=== PATIENT | female | born 1965 | race Hispanic/Latino ===

== ENCOUNTER 2020-10-11 18:36 | Emergency (ER) | payer OTHER ==
[~2020-10-11 18:36] MED LIST: ADV250 IH; ALBU8.5H8 IH
[2020-10-11] MEDS ORDERED: SOLU-MEDROL 125MG VIAL ONE (19:30)
[2020-10-11] MEDS ORDERED: IPRATROPIUM/ALBUTEROL SULFATE 3 ML SOLUTION IH ONE (19:37)
[2020-10-23] MEDS ORDERED: FAMO20TA8 PO (10:46)
[2020-10-23] MEDS ORDERED: LORA10TA7 PO (10:46)
== END 2020-10-11 20:47 | disposition home or self-care (01) ==
LOC: EDH 18:36
DX: J45.909 Unspecified asthma, uncomplicated (principal); Z88.6 Allergy status to analgesic agent
CPT/HCPCS: 93005; 94640; 96374; 99283; J2930

== ENCOUNTER 2020-10-26 06:53 | Day surgery (SDC) | payer OTHER ==
[2020-10-19 12:37] LABS: BASOPHILS % (AUTO) 0.5 % (0.0-5.0); EOSINOPHILS % (AUTO) 5.3 % (0.0-8.0); LYMPHOCYTES % (AUTO) 22.3 % (21.0-51.0); MEAN CORPUSCULAR HEMOGLOBIN 27.8 pg (27.0-33.0); MEAN CORPUSCULAR HGB CONC 33.2 g/dL (32.0-36.0); MEAN CORPUSCULAR VOLUME 83.7 fL (79-99); MONOCYTES % (AUTO) 7.3 % (3.0-13.0); NEUTROPHILS % (AUTO) 63.9 % (40.0-77.0); PLATELET COUNT (AUTO) 318 K/uL (130-400); RED CELL DISTRIBUTION WIDTH 14.2 % (11.0-15.5); WHITE BLOOD COUNT (AUTO) 7.4 K/uL (4.8-10.8)
[2020-10-19 12:45] LABS: CREATININE 0.7 mg/dL (0.5-1.5); POTASSIUM 3.8 mmol/L (3.5-5.1)
[2020-10-23 10:42] VITALS: BP 119/78
[~2020-10-26] VITALS: Ht 160 cm; Wt 60.1 kg
[2020-10-26] VITALS (9 sets, daily range): BP systolic 112–127; BP diastolic 74–92
[~2020-10-26 06:53] MED LIST changes: +FAMO20TA8 PO; +LORA10TA7 PO
[2020-10-26] MEDS ORDERED: LACTATED RINGERS 1000ML 1,000 ML IV ONE (07:51)
[2020-10-26] MEDS ORDERED: LIDOCAINE PF 2% 5ML ABBOJECT ONE (08:09)
[2020-10-26] MEDS ORDERED: PROPOFOL 10 MG/ML 20ML VIAL IV ONE (08:09)
[2020-10-26] MEDS ORDERED: FENTANYL CITRATE PF 50 MCG/1 ML 2ML VIAL ONE (08:09)
[2020-10-26] MEDS ORDERED: MIDAZOLAM HCL 1 MG/ML 2ML VIAL ONE (08:09)
[2020-10-26] MEDS ORDERED: VASOPRESSIN 20 UNITS/ML 1ML VIAL ONE (08:10)
[2020-10-26] MEDS ORDERED: STRONG IODINE SOLN 14ML BOTTLE ONE (08:11)
[2020-10-26] MEDS ORDERED: LIDOCAINE HCL 1% 20 ML VIAL ONE (08:45)
== END 2020-10-26 10:00 ==
LOC: DAH 06:53
PROVIDERS: ATTEND Specialist
DX: R87.618 Other abnormal cytological findings on specimens from cervix uteri (principal); N72 Inflammatory disease of cervix uteri; J45.909 Unspecified asthma, uncomplicated; K21.9 Gastro-esophageal reflux disease without esophagitis; Z20.828 Contact with and (suspected) exposure to other viral communicable diseases
CPT/HCPCS: 36415; 57520; 80048; 85025; A4215; A4221; A4222; A4223; A4351; A4600; A4663; A6260; C9803; J2001; J2250; J2704; J3010; J3490; J7120; U0003

== ENCOUNTER 2022-01-07 20:35 | Emergency (ER) | payer OTHER ==
[~2022-01-07] VITALS: Ht 160 cm; Wt 66.2 kg
[~2022-01-07 20:35] MED LIST changes: +FLUC150T PO
[2022-01-07 20:42] VITALS: BP 137/83
[2022-01-07] MEDS ORDERED: KETOROLAC 60 MG VIAL (30MG/ML) IM ONE (21:00)
[2022-01-07] MEDS ORDERED: NAPR-1180 PO (22:05)
== END 2022-01-07 22:19 | disposition home or self-care (01) ==
LOC: EDH 20:35
DX: S93.402A Sprain of unspecified ligament of left ankle, initial encounter (principal); S93.602A Unspecified sprain of left foot, initial encounter; S80.02XA Contusion of left knee, initial encounter; J45.909 Unspecified asthma, uncomplicated; Z79.1 Long term (current) use of non-steroidal anti-inflammatories (NSAID); Z79.51 Long term (current) use of inhaled steroids; Z88.5 Allergy status to narcotic agent; Z88.8 Allergy status to other drugs, medicaments and biological substances; W18.39XA Other fall on same level, initial encounter; Y93.89 Activity, other specified; Y92.89 Other specified places as the place of occurrence of the external cause; Y99.8 Other external cause status
CPT/HCPCS: 99284; 73610; 73630; 73562; 96372; J1885

== ENCOUNTER 2024-09-05 22:45 | Emergency (ER) | payer BC, OTHER ==
[~2024-09-05] VITALS: Ht 160 cm; Wt 61.2 kg
[~2024-09-05 22:45] MED LIST changes: +NAPR-1180 PO
[2024-09-05] MEDS: FLUORESCEIN SODIUM 1 STRIP STRIP OP ONE (23:24)
[2024-09-05] MEDS: TETRACAINE HCL 0.5% 4 ML OPHTH SOLN OP ONE (23:25)
[2024-09-05] MEDS: TobRAMYCin/DEXAmethASONE OPTH SUSP 2.5 ML BOT OD ONE (23:53)
[2024-09-06 00:15] VITALS: BP 140/90; PULSE 86; RESP 18; TEMP 98.3; O2SAT 96
[2024-09-06] MEDS ORDERED: TOBR5DRO46 OP (00:24)
--- NOTE | 2024-09-06 00:25 | ERN ---
General Chief Complaint: Eye Problems Stated Complaint: RIGHT EYELID PAIN Time Seen by MD: 23:03 History of Present Illness Allergies: Coded Allergies: tramadol (Verified Allergy, Unknown, 02/07/18) Home Meds Active Scripts Naproxen (Naprosyn) 500 Mg Tablet, 500 MG PO BIDPC, #60 TAB Prov:AMRIT BYRNE 01/07/22 Fluconazole (Diflucan) 150 Mg Tablet, 150 MG PO DAILY, #2 TAB Prov:YOGESH LOVE MD 08/28/21 Reported Medications Loratadine (Loratadine) 10 Mg Tablet, 10 MG PO HS, TAB 10/23/20 Famotidine (Famotidine) 20 Mg Tablet, 20 MG PO DAILY, TAB 10/23/20 Fluticasone/Salmeterol (ADVAIR 250-50 DISKUS) 14 Inh/Disk Inh, 1 INH IH BID, INHALER 02/07/18 Albuterol Sulfate (Proair Hfa) 8.5 Gm Hfa.aer.ad, 8.5 GM IH [id number] PRN for PRN for Asthma 02/07/18 Past Medical History Past Medical History: Asthma Past Surgical History: None Family History Family History: Negative Social History Social History: Negative ED Course Orders Procedure Category Date Status Time Tetracaine Hcl PHA 09/05/24 Complete (Pontocaine 0.5% 23:00 Fluorescein Sodium PHA 09/05/24 Complete (Wizst-C-Yuydw At) 23:00 Tobramycin PHA 09/05/24 Complete Sulf/Dexamethasone 00:00 Current Medications Medications (Trade) Dose Ordered Sig/Shabnam Route PRN Reason Start Time Stop Time Status Last Admin Dose Admin Fluorescein Sodium (Fvcsh-H-Jpkyh At) 1 strip ONCE ONCE OP 09/05/24 23:00 09/05/24 23:01 DC 09/05/24 23:24 Tetracaine HCl (Pontocaine 0.5% Ophth Soln) 1 OR 2 DROPS ONCE ONCE OP 09/05/24 23:00 09/05/24 23:01 DC 09/05/24 23:25 Tobramycin/ Dexamethasone (TobraDEX EYE DROPS) 1 DROP ONCE ONCE OD 09/05/24 00:00 09/05/24 23:38 DC 09/05/24 23:53 Vital Signs Date Time Temp Pulse Resp B/P (MAP) Pulse Ox O2 Delivery O2 Flow Rate FiO2 09/05/24 22:48 98.4 87 19 150/93 95 Room Air DX & DISP Disposition: Discharge Departure Impression: Primary Impression: Blepharitis of lower eyelid Condition: Stable Scripts Tobramycin/Dexamethasone (Tobradex St Eye Drops) 0.3 %-0.05 % Drops.susp 1 DROP OP QID, #5 ML 0 Refills Prov: PATRICE RAMON 09/06/24 Additional Instructions: Your physical exam is consistent to what appears to be the start of an infection. You were started on eyedrops antibiotics in the ER. I have given you a prescription for outpatient eyedrop antibiotics. Please follow up with your eye doctor as discussed. Return to the ER for any new or worsening symptoms Referrals: PATRICE TABOR MD (PCP) Time of Disposition: 00:24 I have reviewed the case, and I agree with, Diagnosis and Plan PATRICE RAMON Sep 06, 2024 00:25
== END 2024-09-06 00:41 | disposition home or self-care (01) ==
LOC: EDH 22:45
DX: H01.002 Unspecified blepharitis right lower eyelid (principal); J45.909 Unspecified asthma, uncomplicated; Z79.51 Long term (current) use of inhaled steroids; Z88.5 Allergy status to narcotic agent
CPT/HCPCS: 99283

== ENCOUNTER 2025-04-01 02:29 | Emergency (ER) | payer BC ==
[~2025-04-01] VITALS: Ht 160 cm; Wt 64.0 kg
[~2025-04-01 02:29] MED LIST changes: +TOBR5DRO67 OP
[2025-04-01 02:31] VITALS: BP 142/89; PULSE 79; RESP 20; TEMP 96.6
[2025-04-01] MEDS ORDERED: CIPOTIC OTIC (02:37)
--- NOTE | 2025-04-01 02:40 | ERN ---
General Chief Complaint: Earache Stated Complaint: C/O RT EAR PAIN Time Seen by MD: 02:31 Time Seen by Midlevel: 02:31 Source: patient History of Present Illness Initial Comments 51-year-old female presenting to the ER with right ear fullness that started tonight. Denies any other symptoms Allergies: Coded Allergies: tramadol (Verified Allergy, Unknown, 02/07/18) Home Meds Active Scripts Tobramycin/Dexamethasone (Tobradex St Eye Drops) 0.3 %-0.05 % Drops.susp, 1 DROP OP QID, #5 ML 0 Refills Prov:PATRICE RAMON 09/06/24 Naproxen (Naprosyn) 500 Mg Tablet, 500 MG PO BIDPC, #60 TAB Prov:AMRIT BYRNE 01/07/22 Fluconazole (Diflucan) 150 Mg Tablet, 150 MG PO DAILY, #2 TAB Prov:YOGESH LOVE MD 08/28/21 Reported Medications Loratadine (Loratadine) 10 Mg Tablet, 10 MG PO HS, TAB 10/23/20 Famotidine (Famotidine) 20 Mg Tablet, 20 MG PO DAILY, TAB 10/23/20 Fluticasone/Salmeterol (ADVAIR 250-50 DISKUS) 14 Inh/Disk Inh, 1 INH IH BID, INHALER 02/07/18 Albuterol Sulfate (Proair Hfa) 8.5 Gm Hfa.aer.ad, 8.5 GM IH [id number] PRN for PRN for Asthma 02/07/18 Past Medical History Past Medical History: Asthma Past Surgical History: None Family History Family History: Negative Social History Social History: Negative ROS Dictation CONSTITUTIONAL: Negative except for HPI HEAD/FACE: Negative except for HPI EENT: Negative except for HPI RESPIRATORY: Negative except for HPI GASTROINTESTINAL/ABDOMINAL: Negative except for HPI GENITOURINARY: Negative except for HPI MUSCULOSKELETAL: Negative except for HPI INTEGUMENTARY: Negative except for HPI NEUROLOGICAL/PSYCH: Negative except for HPI HEMATOLOGIC/LYMPHATIC: Negative except for HPI All Systems Negative, Except as noted above. 13 point review of systems assessed and all negative except for above. Physical Exam Physical Exam Dictation PHYSICAL EXAM: GENERAL: alert,, awake oriented x 3 HEENT: EOMI, Sclera non icteric, moist mucosa NECK: Supple, no JVD, trachea midline LUNGS: Clear breath sounds bilaterally. No wheezes HEART: Regular rate and rhythm. Normal S1 and S2, without murmurs ABD: Abdomen soft, nontender. Bowel sounds present EXT: No clubbing or cyanosis, NEURO: Alert and oriented to person, follows commands MDM MDM: Differential diagnosis: Otitis media, otitis externa There are no social concerns with this patient. Prescription drug management Prescriptions will include: Ciprofloxacin otic Medical management and examination interpretation discussions were had by me with other qualified healthcare professionals as indicated for the patient's ca re. DX & DISP Disposition: Discharge Departure Impression: Primary Impression: Otitis externa Condition: Stable Scripts Ciprofloxacin HCl/Hc (Cipro Hc Otic Susp) 0.2 %-1 % Otsus 3 DROP OTIC BID for 7 Days, #10 ML 0 Refills Prov: PATRICE RAMON 04/01/25 Referrals: PATRICE TABOR MD (PCP) I have reviewed the case, and I agree with, Diagnosis and Plan I performed the substantive portion of the visit. I have reviewed and personally made and approve the management plan that is documented in the note by myself or the CELINA. I acknowledge for responsibility for the patient's management plan. PATRICE RAMON Apr 01, 2025 02:40
[2025-04-01] MEDS: CIPROFLOXACIN HCL 0.2%/HYDROCORT 1% 10 ML OTIC SUSP OTIC ONE (02:56)
== END 2025-04-01 02:57 | disposition home or self-care (01) ==
LOC: EDH 02:29
DX: H60.91 Unspecified otitis externa, right ear (principal); J45.909 Unspecified asthma, uncomplicated; Z79.51 Long term (current) use of inhaled steroids; Z88.5 Allergy status to narcotic agent
CPT/HCPCS: 99283